=== PATIENT | female | born 1955 | race Two or more races ===

== ENCOUNTER → 2025-01-24 | Outpatient (CLI) | payer MEDICARE, MEDICAID, SELFPAY ==
[2025-01-24 11:24] LABS: Basophils # (Auto) 0.0 Thou/mm3 (0.0-0.2); Basophils % (Auto) 1 % (0-2.5); Eosinophils # (Auto) 0.1 Thou/mm3 (0.0-0.5); Eosinophils % (Auto) 2 % (0-10); Hematocrit 38.3 % (36.0-46.0); Hemoglobin 12.4 g/dL (12.0-16.0); Immature Granulocytes Auto 0.01 Thou/mm3 (0.00-0.00); Lymphocytes # (Auto) 1.5 Thou/mm3 (1.0-4.8); Lymphocytes % (Auto) 30 % (10-50); Mean Corpuscular HGB Conc 32.4 g/dl (31.0-37.0); Mean Corpuscular Hemoglobin 29.2 pg (25.0-35.0); Mean Corpuscular Volume 90 fL (80-100); Monocytes # (Auto) 0.4 Thou/mm3 (0.0-0.8); Monocytes % (Auto) 9 % (0-12); Neutrophils # (Auto) 3.0 Thou/mm3 (1.8-7.7); Neutrophils % (Auto) 59 % (37-80); Nucleated Red Blood Cell # 0.00 Thou/mm3 (0.00-0.00); Nucleated Red Blood Cell % 0 /100 WBC (0); Platelet Count 385 Thou/mm3 (140-440); RDW Standard Deviation 41.8 fL (36.4-46.3); Red Blood Count 4.25 Miln/mm3 (4.00-5.20); White Blood Count 5.1 Thou/mm3 (3.6-11.0)
[2025-01-24 11:48] LABS: Blood Urea Nitrogen 20 mg/dL (9-23); Creatinine (Component) 1.0 mg/dL (0.6-1.3); eGFR > 60 See Note
[2025-01-24 11:57] LABS: Ferritin 145 ng/mL (7.3-270.7); Iron 93 mcg/dL (50-170); Percent Iron Saturation 33 % (20-55); Total Iron Binding Capacity 280 mcg/dL (250-425); Unsaturated Iron Binding 187 (225-295)
== END | disposition home or self-care (01) ==
PROVIDERS: PCP Family Medicine; Referring Provider Student in an Organized Health Care Education/Training Program; Visit Provider Student in an Organized Health Care Education/Training Program
DX: D50.0 Iron deficiency anemia secondary to blood loss (chronic) (principal)
CPT/HCPCS: 36415; 82565; 82728; 83540; 83550; 84520; 85025

== ENCOUNTER → 2025-02-14 | Outpatient (CLI) | payer MEDICARE, MEDICAID, SELFPAY ==
--- NOTE | 2025-02-14 | XR_ITS ---
Examination: CT abdomen with intravenous contrast CT pelvis with intravenous contrast 2-D coronal reconstructions 2-D sagittal reconstructions Date and time of exam:February 14, 2025, 0936 hours INDICATIONS: Right lower quadrant abdominal pain diarrhea one year. CTDI: vol (mGy) 8.56 DLP: (mGycm) 477 Technique: Multiple axial sections of the abdomen and pelvis have been obtained. 64 slice high-resolution scanner used. 3 mm axial sections have been obtained, post intravenous injection 60 cc Isovue 370. 2-D sagittal, coronal reconstructions obtained. Low dose protocols were performed. One or more of the following dose reduction techniques were used; automated exposure control, adjustment of the mA and/or KV according to patient size, use of iterative reconstruction technique. Findings: Gallbladder wall appears mildly thickened. No pancreatic or adrenal mass. No renal or ureteral calculi, no hydronephrosis. Aorta normal size. No bowel obstruction. Normal appendix. No diverticulitis. Atrophic uterus. No pelvic mass No bladder mass or bladder calculi. Moderate osteopenia Moderate narrowing hip joints IMPRESSION: Recommend gallbladder sonography to exclude gallbladder wall thickening Normal appendix No bowel obstruction or diverticulitis.
== END | disposition home or self-care (01) ==
PROVIDERS: PCP Family Medicine; Referring Provider Internal Medicine Gastroenterology; Visit Provider Internal Medicine Gastroenterology
DX: R10.11 Right upper quadrant pain (principal); R10.13 Epigastric pain; R10.31 Right lower quadrant pain; K62.89 Other specified diseases of anus and rectum; R10.32 Left lower quadrant pain
CPT/HCPCS: 74177; A4649; Q9967

== ENCOUNTER 2025-05-15 08:52 | Outpatient (RCR) | payer MEDICARE, MEDICAID, SELFPAY ==
--- NOTE | 2025-05-15 10:00 | XR_ITS ---
EXAMINATION: [facility] DATE OF EXAM: 05/15/2025 CLINICAL INFORMATION: R10.13 - Epigastric pain COMPARISON: 02/14/2025, CT abdomen pelvis. Findings: After intravenous administration of 5.7 mCi of Tc 99 Mebrofenin, hepatobiliary scan was performed. Following this, 1.6 mcg of Kinevac was administered intravenously over 10 minutes at 70 minutes post Mebrofenin for calculation of gallbladder ejection fraction. There is normal hepatic parenchymal uptake with normal excretion into the biliary system and gallbladder. There is normal flow of contrast into the duodenum. There is no evidence of obstruction or acute cholecystitis. Gallbladder ejection fraction is 81%. Impression: Normal.
== END 2025-05-20 23:59 | disposition home or self-care (01) ==
LOC: SNUC 08:52
PROVIDERS: PCP Family Medicine; Referring Provider Internal Medicine Gastroenterology; Visit Provider Internal Medicine Gastroenterology
DX: R10.13 Epigastric pain (principal)
CPT/HCPCS: 78227; A9537; J2805